=== PATIENT | female | born 1945 | race Caucasian/White ===

== ENCOUNTER 2017-02-06 08:11 | Emergency (ER) | payer OTHER ==
--- NOTE | ~2017-02-06 | CR253 ---
[facility] A Service of [place] [facility] / [facility] RADIOLOGY TEXT RESULTS PATIENT: MARYSOL KEANE LOCATION: SED : 47 UNIT #: [id number] AGE: [address]: Cliff Ugalde MD SEX: F ORDER DR: [id number] [place] [id number] E MR#: [id number] Acc #: [id number] NAME: MARYSOL KEANE. : 1945 SEX: F STUDY DATE/TIME: 02/06/2017 8:37 UNIT: SED ROOM: STUDY DESCRIPTION: CR Tibia and Fibula 2 Views Rt Attending Physician: Cliff Ugalde M.D. Ordering Physician: Cliff Ugalde M.D. Primary Care Physician: Bruce Guerrero M.D. MEDICAL IMAGING REPORT This report is preliminary unless electronic signature is present. EXAM Right tib-fib 02/06/2017 INDICATION Pain and swelling after a fall on 02/01/2017. FINDINGS AP and lateral views of the tibia-fibula were obtained. Patient has a right knee arthroplasty. As seen on the ankle series, there is a small bone fragment adjacent to the tip of the distal fibula which is suggestive of an avulsion injury of indeterminate age, possibly acute. There is no other evidence of fracture. IMPRESSION Other than the small bone fragment near the tip of the distal fibula seen on the ankle series today, no evidence of fracture. Patient has a right knee arthroplasty. Dictated by... Waqar Ignacio Jr., M.D. THIS IS AN ELECTRONICALLY VERIFIED REPORT Waqar Ignacio Jr., M.D. at 02/06/2017 12:36 PM AMINA/[place] TD: 02/06/2017 09:52 JOB #: [id number] MEDICAL IMAGING REPORT Page 1 of 1
--- NOTE | ~2017-02-06 | CR127 ---
[facility] A Service of [facility] & [facility] RADIOLOGY TEXT RESULTS PATIENT: MARYSOL KEANE LOCATION: SED : 47 UNIT #: [id number] AGE: [address]: Cliff Ugalde MD SEX: F ORDER DR: [id number] [place] [id number] E MR#: [id number] Acc #: [id number] NAME: MARYSOL KEANE. : 1945 SEX: F STUDY DATE/TIME: 02/06/2017 8:37 UNIT: SED ROOM: STUDY DESCRIPTION: CR Foot Complete Min 3 View Rt Attending Physician: Cliff Ugalde M.D. Ordering Physician: Cliff Ugalde M.D. Primary Care Physician: Bruce Guerrero M.D. MEDICAL IMAGING REPORT This report is preliminary unless electronic signature is present. EXAM Right foot, 02/06 INDICATION Pain and swelling in the foot after a fall on 02/01/2017. Bruising in the second through fifth toes. FINDINGS 3 views of the right foot were obtained. There is a plantar calcaneal spur. There is some spurring at the talonavicular joint. No fracture or malalignment is seen. IMPRESSION Degenerative spurring as above. No acute fractures. Dictated by... Waqar Ignacio Jr., M.D. THIS IS AN ELECTRONICALLY VERIFIED REPORT Waqar Ignacio Jr., M.D. at 02/06/2017 12:36 PM AMINA/[place] TD: 02/06/2017 09:53 JOB #: [id number] MEDICAL IMAGING REPORT Page 1 of 1
--- NOTE | ~2017-02-06 | CR21 ---
[facility] A Service of [facility] & [facility] RADIOLOGY TEXT RESULTS PATIENT: MARYSOL KEANE LOCATION: SED : 47 UNIT #: [id number] AGE: [address]: Cliff Ugalde MD SEX: F ORDER DR: [id number] [place] [id number] E MR#: [id number] Acc #: [id number] NAME: MARYSOL KEANE. : 1945 SEX: F STUDY DATE/TIME: 02/06/2017 8:37 UNIT: SED ROOM: STUDY DESCRIPTION: CR Ankle Min 3 Views Rt Attending Physician: Cliff Ugalde M.D. Ordering Physician: Cliff Ugalde M.D. Primary Care Physician: Bruce Guerrero M.D. MEDICAL IMAGING REPORT This report is preliminary unless electronic signature is present. EXAM Right ankle, 02/06 INDICATION Pain and swelling after a fall on 02/01/2017 FINDINGS 3 views of the right ankle were obtained. There is some lateral soft tissue swelling. No malalignment is seen. There is a small bone fragment adjacent to the tip of the distal fibula which may reflect an age indeterminate avulsion injury, possibly acute. No other evidence of fracture. There is a plantar calcaneal spur. IMPRESSION Lateral soft tissue swelling with a tiny bone fragment adjacent to the tip of the distal fibula. This may reflect an avulsion injury, possibly acute. The rest of the ankle is negative. Dictated by... Waqar Ignacio Jr., M.D. THIS IS AN ELECTRONICALLY VERIFIED REPORT Waqar Ignacio Jr., M.D. at 02/06/2017 12:36 PM AMINA/[place] TD: 02/06/2017 09:50 JOB #: [id number] MEDICAL IMAGING REPORT Page 1 of 1
[~2017-02-06 08:11] MED LIST: ASPIRIN PO; ASPIRIN81 M1 PO; GOUT MEDICATION PO; HCTZ PO; LEVOXYL125 MC1 PO; MOBIC7.5 MG/5 M PO; POTASSIUM PO; SYNTHROID PO; VERAPAMIL ER180 MG PO
== END 2017-02-06 09:40 | disposition home or self-care (01) ==
LOC: SED 08:11
DX: S82.831A Other fracture of upper and lower end of right fibula, initial encounter for closed fracture (principal); I10 Essential (primary) hypertension; Z79.899 Other long term (current) drug therapy; Z79.82 Long term (current) use of aspirin; W10.1XXA Fall (on)(from) sidewalk curb, initial encounter; Y92.009 Unspecified place in unspecified non-institutional (private) residence as the place of occurrence of the external cause
CPT/HCPCS: 29540; 73590; 73610; 73630; 99283; 99284